=== PATIENT | female | born 1995 | race Caucasian/White ===

== ENCOUNTER 2017-07-26 16:45 | Emergency (ER) | payer BC ==
[2017-07-26 18:45] LABS: Hematocrit 40 % (35-47); Hemoglobin 13.5 g/dl (12.0-16.0); Mean Corpuscular HGB Conc 34 g/dl (31-36); Mean Corpuscular Hemoglobin 31 pg (27-31); Mean Corpuscular Volume 92 fL (80-97); Mean Platelet Volume 8 um3 (7.4-10.4); Red Blood Count 4.35 10^6/ul (4.0-5.4); Red Cell Distribution Width 13 % (10.5-15); White Blood Count 14.8 10^3/ul (3.5-10.8)
[2017-07-26 18:56] LABS: Urine Bilirubin Negative (Negative); Urine Glucose Negative (Negative); Urine Nitrite Negative (Negative)
[2017-07-26 18:57] LABS: ALT 10 U/L (7-52); AST 13 U/L (13-39); Albumin 4.5 g/dL (3.2-5.2); Alkaline Phosphatase 39 U/L (34-104); Anion Gap 9 mmol/L (2-11); BUN/Creatinine Ratio 13.6 (8-20); Blood Urea Nitrogen 12 mg/dL (6-24); C Reactive Protein 9.52 mg/L (< 5.00); CO2 Carbon Dioxide 22 mmol/L (22-32); Calcium 8.9 mg/dL (8.6-10.3); Chloride 102 mmol/L (101-111); EGFR African American 101.5 (>60); EGFR Non-African American 78.9 (>60); Globulin 2.9 g/dL (2-4); Glucose 103 mg/dL (70-100); Lipase 29 U/L (11.0-82.0); Potassium 3.9 mmol/L (3.5-5.0); Sodium 133 mmol/L (133-145); Total Protein 7.4 g/dL (6.4-8.9)
[2017-07-26] MEDS ORDERED: Morphine INJ* 4 MG/ML 1 ML CARPUJECT IV ONE (19:33)
[2017-07-26] MEDS ORDERED: Ondansetron INJ* 2 MG/ML VIAL IV ONE (19:33)
--- NOTE | 2017-07-26 20:09 | RAD ---
CLINICAL HISTORY: Right flank and abdominal pain. COMPARISON: None TECHNIQUE: Noncontrast CT examination of the abdomen and pelvis from the lung bases through the initial tuberosities. FINDINGS: VISUALIZED LUNG BASES: The visualized lung bases are grossly clear. There is no pleural effusion. ABDOMEN AND PELVIS: Evaluation of the solid organs and vasculature is limited without intravenous contrast. The liver, spleen, pancreas and adrenal glands are grossly normal in appearance. The gallbladder is normal. The kidneys are normal in appearance without focal mass, calcification or signs of hydronephrosis. Evaluation of the gastrointestinal tract is limited without oral contrast. The small and large bowel are not distended.The patient's normal appendix is identified in the right lower quadrant with a small amount of gas in the lumen measuring 5 mm in diameter (axial image 64 and sagittal image 49).. There is no gross retroperitoneal or mesenteric lymphadenopathy. There is a small amount of fluid in the cul-de-sac. The abdominal aorta and iliac arteries are normal in course and diameter. There are no sinister bone lesions. IMPRESSION: 1. No renal calculi or signs of hydronephrosis. 2. Small amount of fluid in the cul-de-sac is noted. Please correlate to stage of menstrual cycle.
--- NOTE | 2017-07-26 22:19 | RAD ---
INDICATION: Interval increase of 2 days of right lower quadrant pain. COMPARISON: Same day CT of the abdomen and pelvis dated July 26, 2017. TECHNIQUE: Real-time transabdominal and transvaginal ultrasound examination of the female pelvis including grayscale and Doppler color flow imaging. FINDINGS: Uterus: The uterus is normal in size and echogenicity measuring 5.7 x 2.3 x 4.4 cm. The endometrial stripe is smooth and uniform measuring 2 mm in thickness. At the right adnexa there is a partially vascular heterogeneous structure measuring 2.6 x 4.4 x 4.1 cm. Along the more lateral margin of this structure there is a tubular 1.9 cm portion with a hyperechogenic center measuring 5 mm. Along the left lateral aspect of the uterus there are dilated periuterine veins measuring 6 mm in diameter. Ovaries: The right and left ovary measure 3.4 x 2.1 x 2.4 cm and 3.1 x 1.3 x 3.0 cm, respectively. Normal arterial and venous waveforms are identified. Appearance is within normal limits for the patient's age. There is no free fluid in the cul-de-sac. IMPRESSION: 1. Along the right adnexa there is a tubular structure with an echogenic focus potentially representing a dilated and/or obstructed right fallopian tube. Differential includes tubo-ovarian abscess, right fallopian tube obstruction of another etiology or tubal ectopic . Please correlate to physical examination and relevant laboratory values including beta hCG. 2. Top normal left sided periuterine veins are incidentally noted. Imaging findings were discussed with Dr. Quiroz of the telephone at 2200 hours on July 26, 2017.
[2017-07-26] MEDS ORDERED: DOXYcycline CAP(*) 100 MG PO ONE (22:40)
[2017-07-26] MEDS ORDERED: diPHENhydraMINE IV* 25 MG in NS 0.9% 50 ML* 50 ML IVPB ONE (22:40)
[2017-07-26] MEDS ORDERED: metroNIDAZOLE TAB* 250 MG PO ONE (22:40)
[2017-07-26] MEDS ORDERED: cefTRIAXone(*) 1 GM in NS 0.9% 50 ML* 50 ML IVPB ONE (22:40)
[2017-07-26] MEDS ORDERED: traMADol TAB* 50 MG PO ONE (22:41)
[2017-07-27 00:51] VITALS: BP 116/73
--- NOTE | 2017-07-28 09:55 | PN ---
Progress Note - Progress Note Date of Service: 07/26/17 Note: Patient vaginal cultures positive for gardnerella. placed on flagyl at d/c. no further changes required at this time.
--- NOTE | 2017-07-28 10:18 | ED ---
Cass Salas Nilda, scribed for Dawit Quiroz MD on 07/26/17 at 1814 . Abdominal Pain/Female - HPI Summary HPI Summary: This patient is a 22 year old F BIBA to [facility] accompanied by parents with a chief complaint of abdominal pain that radiated to her back since yesterday. The patient rated the pain 10/10 in severity but is now a 7/10. Symptoms aggravated by nothing and alleviated by Toradol taken [facility] at [facility] (one hour ago). Patient reports diaphoresis, anxiety attack, and nausea. Patient denies urinary problems (discharge, hematuria, burning, frequency). Patients last BM was today, LNMP was 4 days ago, and she recently came off BCP due to possible allergy (2 days ago). FHx kidney stones. - History of Current Complaint Chief Complaint: EDAbdPain Stated Complaint: RT SIDE ABD PAIN Time Seen by Provider: 07/26/17 17:55 Hx Obtained From: Patient Hx Last Menstrual Period: two weeks ago Onset/Duration: Lasting Days Timing: Constant Severity Currently: Severe Pain Intensity: 7 Location: Diffuse Radiates: Yes Radiates to: Back Character: Sharp Allergies/Adverse Reactions: Allergies Allergy/AdvReac Type Severity Reaction Status Date / Time Amoxicillin [From Augmentin] Allergy Hives Verified 07/26/17 17:29 Cefaclor [From Ceclor] Allergy Hives Verified 07/26/17 17:29 Clavulanic Acid Allergy Hives Verified 07/26/17 17:29 [From Augmentin] Penicillins Allergy Hives Verified 07/26/17 17:29 Sulfa Drugs Allergy Hives Verified 07/26/17 17:29 Cover roll tape Allergy Rash Uncoded 07/26/17 17:29 environmental allergies Allergy See Comment Uncoded 07/26/17 17:29 PMH/Surg Hx/FS Hx/Imm Hx Endocrine/Hematology History: Denies: Hx Diabetes Respiratory History: Denies: Hx Asthma EENT History: Denies: Hx Deafness - Surgical History Surgery Procedure, Year, and Place: Left shoulder 2011 Infectious Disease History: Yes Infectious Disease History: Denies: Traveled Outside the [place] in Last 30 Days - Family History Known Family History: Positive: Other - kidney stones - Social History Alcohol Use: Occasionally Substance Use Type: Reports: None Smoking Status (MU): Never Smoked Tobacco Review of Systems Positive: Skin Diaphoresis. Negative: Fever, Chills Negative: Erythema Negative: Sore Throat Negative: Chest Pain Negative: Shortness Of Breath, Cough Positive: Abdominal Pain, Nausea. Negative: Vomiting, Diarrhea Negative: burning, dysuria, discharge, frequency, hematuria Positive: Other - back pain. Negative: Myalgia, Edema Negative: Rash Neurological: Other - negative dizziness Positive: Anxious All Other Systems Reviewed And Are Negative: Yes Physical Exam - Summary Physical Exam Summary: Constitutional: Well-developed, Well-nourished, Alert. (-) Distressed Skin: Warm, Dry HENT: Normocephalic; Atraumatic Eyes: Conjunctiva normal Neck: Musculoskeletal ROM normal neck. (-) JVD, (-) Stridor, (-) Tracheal deviation Cardio: Rhythm regular, rate normal, Heart sounds normal; Intact distal pulses; The pedal pulses are 2+ and symmetric. Radial pulses are 2+ and symmetric. (-) Murmur Pulmonary/Chest wall: Effort normal. (-) Respiratory distress, (-) Wheezes, (-) Rales Abd: Soft, (-) Tenderness, (-) Distension, (-) Guarding, (-) Rebound Musculoskeletal: (-) Edema Lymph: (-) Cervical adenopathy Neuro: Alert, Oriented x3 Psych: Mood and affect Normal Triage Information Reviewed: Yes Vital Signs On Initial Exam: Initial Vitals Temp Pulse Resp BP Pulse Ox 98.0 F 65 18 117/56 97 07/26/17 17:26 07/26/17 17:26 07/26/17 17:26 07/26/17 17:26 07/26/17 17:26 Vital Signs Reviewed: Yes - Denisse Coma Scale Coma Scale Total: 15 Diagnostics - Vital Signs Vital Signs Temp Pulse Resp BP Pulse Ox 07/26/17 17:31 69 18 98 07/26/17 17:26 98.0 F 65 18 117/56 97 - Laboratory Result Diagrams: 07/26/17 18:30 07/26/17 18:30 Lab Statement: Any lab studies that have been ordered have been reviewed, and results considered in the medical decision making process. - CT Abdomen/Pelvis CT Interpretation Completed By: Radiologist - No renal calculi or signs of nydronephrosis. Small amount of fluid in the cul-de-sac is noted. Please correlate to stage of menstrual cycle. ED physician reviewed report and agrees. - Additional Comments Diagnostic Additional Comments: US Transvaginal, per radiologist, reveals 1. Along the right adnexa there is a tubular structure with an echogenic focus potentially representing a dilated and/or obstructed right fallopian tube. Differential includes tubo-ovarian abscess, right fallopian tube obstruction of another etiology or tubal ectopic . Please correlate to physical examination and relevant laboratory values including beta hCG. 2. Top normal left sided periuterine veins are incidentally noted. Imaging findings were discussed with Dr. Quiroz of the telephone at 2200 hours on July 26, 2017. ED Physician reviewed report and agrees. Abdominal Pain Fem Course/Dx - Course Course Of Treatment: This patient is a 22 year old F BIBA to [facility] accompanied by parents with a chief complaint of abdominal pain that radiated to her back since yesterday. The patient rated the pain 10/10 in severity but is now a 7/ 10. Symptoms aggravated by nothing and alleviated by Toradol taken [facility] at [facility] (one hour ago). Patient reports diaphoresis, anxiety attack, and nausea. Patient denies urinary problems (discharge, hematuria, burning, frequency). Patients last BM was today, LNMP was 4 days ago, and she recently came off BCP due to possible allergy (2 days ago). FHx kidney stones. Abdomen/ Pelvis CT, per radiologist, reveals no renal calculi or signs of nydronephrosis. Small amount of fluid in the cul-de-sac is noted. Please correlate to stage of menstrual cycle. ED physician reviewed report and agrees. US Transvaginal, per radiologist, reveals: 1. Along the right adnexa there is a tubular structure with an echogenic focus potentially. representing a dilated and/or obstructed right fallopian tube. Differential includes. tubo- ovarian abscess, right fallopian tube obstruction of another etiology or tubal. ectopic . Please correlate to physical examination and relevant laboratory values. including beta hCG. 2. Top normal left sided periuterine veins are incidentally noted. Imaging findings were discussed with Dr. Quiroz of the telephone at 2200 hours on 2016. ED Physician reviewed report and agrees. [2250] Dr. Pereira (PHYSICIAN INTENSIVIST) reviewed ultrasound. Negative and very low suspicion for STD. He wants to see her in his clinic tomorrow morning. He recommends that patient be treated for pelvic inflammatory disesae. Patient is agreeable with this plan. Patient must receive a dose of Rocephin despite allergy (rash) to similar medications. Patient will be given Benadryl beforehand. If she begins to have a reaction, the dose will be stopped immediately. Patient agrees with this plan. Patient is diagnosed with right adnexal mass. Patient is being signed out to Dr. Doe, pending medication ( Rochephin) administration. - Diagnoses Provider Diagnoses: Adnexal mass - Provider Notifications Discussed Care Of Patient With: Deonte Pereira Time Discussed With Above Provider: 22:50 Instructed by Provider To: Other - reviewed ultrasound. Negative and very low suspicion for STD. He wants to see her in his clinic tomorrow morning. He recommends that patient be treated for pelvic inflammatory disease. Discharge - Discharge Plan Condition: Stable Disposition: OTHER Discharge Disposition Comment: Patient signed out to Dr. Doe, awaiting medication aministration. Prescriptions: DOXYcycline CAP(*) [DOXYcycline 100MG CAP(*)] 100 mg PO BID #20 cap Metronidazole [Flagyl 500 MG TAB] 500 mg PO BID #20 tab Naproxen TAB* [Naprosyn 250 mg TAB*] 500 mg PO Q8H PRN #30 tab PRN Reason: Pain - Moderate To Severe traMADol TAB* [Ultram*] 50 mg PO Q6HR PRN #12 tab MDD 4 PRN Reason: Pain - Moderate To Severe Referrals: Chip Ryan [Primary Care Provider] - The documentation as recorded by the Cass nicolas Nilda accurately reflects the service I personally performed and the decisions made by me, Dawit Quiroz MD.
== END 2017-07-27 00:48 ==
LOC: ED 16:45
DX: R19.09 Other intra-abdominal and pelvic swelling, mass and lump (principal); R10.9 Unspecified abdominal pain; F41.9 Anxiety disorder, unspecified; R11.0 Nausea
CPT/HCPCS: 36415; 74176; 76830; 80053; 81003; 83605; 83690; 84702; 85025; 86140; 87480; 87491; 87510; 87591; 87661; 96374; 96375; 99285; A9270-GY; J0696; J1200; J2270; J2405

== ENCOUNTER 2018-08-19 14:56 | Emergency (ER) | payer BC ==
--- OUTSIDE RECORDS SUMMARY | 2018-08-19 15:11 | XMS REPORT ---
:1995 External Reference #:[id number] Author Organization [facility] Address [address] [address] Phone [phone] Care Team Providers Name Role Phone Chip Ryan PA Care Team Information Show Girl Unavailable Payers Type Date Identification Numbers Payment Provider Subscriber Commercial Policy Number: [id number] [facility] Commercial Rupali Yates PayID: [id number] [address] [address] [place] [address] Problems Date Description Provider Status Onset: 12/22/2016 Peptic reflux disease Madison Weiner PA Active Family History Date Family Member(s) Problem(s) Comments Father Hypertension Father Diabetes, Adult Mother Good Health First Brother Good Health Paternal Grandfather due to Cancer, Lung () Paternal Grandfather due to Cancer, Brain () Paternal Grandmother Good Health Maternal Grandfather Good Health Maternal Grandmother Good Health Social History Type Date Description Comments Marital Status Single 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 consumes 1-2 beers per week Smoking Patient has never smoked Recreational Drug Use Denies Drug Use Daily Caffeine Consumes on average 1 cup of coffee per day Daily Caffeine Consumes on average 3 sodas per day Enjoy Exercising Enjoys Exercising Sun Exposure moderate amount of sun exposure Sun Exposure Uses sunscreen Seat Belt/Car Seat always uses seat belt Guns in Home No Recent Travel There has not been recent travel abroad Allergies, Adverse Reactions, Alerts Date Description Reaction Status Severity Comments 12/22/2016 Penicillin Hives active 12/22/2016 Amoxicillin Hives active 12/22/2016 Sulfa Drugs Hives active 12/22/2016 Ceclor Hives active Medications Medication Date Status Form Strength Qnty SIG Indications Ordering Provider Omeprazole Active Capsules DR 20mg 90caps 1 by Priya Freeman Zuly every day MD Yomi Ranitidine HCL Active Capsules 150mg 60caps 1 by Priya Freeman mouth a Zuly day MD Yomi Hydroxyzine Active Tablets 25mg 120tab take 1 F41.1 TOBIAS Freeman s tablet by Zuly Celaya MD every 6 hours as needed for anxiety Medications Administered in Office Medication Date Status Form Strength Qnty SIG Indications Ordering Provider PPD Administered Injection Nurses 8 Schedule Beronica Vital Signs Date Vital Result Comment 08/13/2018 Body Temperature 99.2 F Weight 176.25 lb Heart Rate 89 /min BP Systolic 121 mmHg BP Diastolic 76 mmHg Height 69 inches 5'9" BMI (Body Mass Index) 26.0 kg/m2 01/18/2018 Weight 177.50 lb Heart Rate 70 /min BP Systolic 100 mmHg BP Diastolic 65 mmHg Height 69 inches 5'9" BMI (Body Mass Index) 26.2 kg/m2 08/02/2017 Height 69 inches 5'9" 07/26/2017 Heart Rate 81 /min BP Systolic 110 mmHg BP Diastolic 74 mmHg 12/22/2016 Weight 181.00 lb Heart Rate 72 /min BP Systolic 115 mmHg BP Diastolic 57 mmHg Height 69 inches 5'9" BMI (Body Mass Index) 26.7 kg/m2 Results Test Date Test Result H/L Range Note Laboratory test finding 08/13/2018 1 Rapid Flu Test (In House) NEG 1 Strep Screen (In-House) NEG Negative Comprehensive Metabolic (CMP) 12/22/2016 Sodium 140 mmol/L 134-142 Potassium 5.1 mmol/L 3.5-5.2 Chloride 105 mmol/L 97-109 Carbon Dioxide 28 mmol/L 24-34 Glucose 69 mg/dL Low 70-105 BUN 11 mg/dL 6-26 Creatinine 0.9 mg/dL 0.5-1.4 Calcium 9.8 mg/dL 8.5-10.2 Total Protein 7.3 g/dL 6.0-8.0 Albumin 4.8 g/dL 3.6-4.9 Globulin 2.5 g/dL 2.0-3.5 A/G Ratio 1.9 Ratio 1.0-2.2 Total Bilirubin 0.6 mg/dL 0.1-1.3 Alkaline Phosphatase 43 U/L 24-140 Alt 9 U/L 3-42 Ast 13 U/L 8-42 Anion Gap 12 mmol/L 6-14 Amanda Egfr >60 >60 1 Non Amanda Egfr >60 >60 2 CBC With Auto Diff 12/22/2016 WBC 5.4 K/uL 4.1-11.0 RBC 4.67 M/uL 4.00-5.40 Hemoglobin 14.6 gm/dL 12.0-16.0 Hematocrit 42.8 % 36.0-47.0 MCV 91.6 fL 80.0-97.0 MCH 31.3 pg 27.0-32.0 MCHC 34.1 g/dL 32.0-36.0 RDW 13.2 % 11.5-14.5 PLT Count 320 K/ul 140-400 Neutrophil 52.7 % 35.0-75.0 Lymphocyte 37.5 % 16.0-52.0 Monocyte 7.7 % 2.0-10.0 Eosinophil 1.1 % 0.0-5.0 Basophil 1.0 % 0.0-4.0 Abs Neutrophils 2.9 K/uL 2.1-8.0 Abs Lymphocytes 2.0 K/uL 0.8-5.5 Abs Monocytes 0.4 K/uL 0.1-1.0 Abs Eosinophils 0.1 K/uL 0.0-0.5 Abs Basophils 0.1 K/uL 0.0-0.3 Lipid 12/22/2016 Cholesterol 162 mg/dL 50-199 Triglycerides 164 mg/dL 30-200 HDL 56 mg/dL 35-85 3 Chol/ HDL Ratio 2.9 ratio Low 3.7-5.6 VLDL 33 mg/dL High 2-29 LDL (Calc) 73 mg/dL 20-99 4 Laboratory test finding 12/22/2016 TSH 1.31 uIU/mL 0.35-4.94 1 Concerning GFR Guidelines for Americans: Normal function or mild renal disease, if clinically at risk: >/=60 mL/min Moderately decreased: 30-59 Severely decreased: 15-29 Renal failure: <15 2 Concerning GFR Guidelines: Normal function or mild renal disease, if clinically at risk: >/=60 mL/min Moderately decreased: 30-59 Severely decreased: 15-29 Renal failure: <15 Glomerular Filtration Rate (GFR) is estimated based on the MDRD equation, which assumes a steady state for creatinine as recommended by the National Kidney Disease Education Program in conjunction with the National Institutes of Health and the National Kidney Foundation. Clinical conditions in which it may be necessary to measure GFR by using clearance methods include extremes of age and body size, severe malnutrition or obesity, diseases of skeletal muscle, paraplegia or quadriplegia, vegetarian diet, rapidly changing kidney function, and calculation of the dose of potentially toxic drugs that are excreted by the kidneys. 3 Per NCEP ATP III Guidelines: Results lower than 40 mg/dL are suggestive of increased risk for coronary artery disease. Results > or=to 60 mg/dL are considered a negative risk factor. 4 Per NCEP ATP III Guidelines: Normal Population <130 Patients with medical conditions: CHD/DM Optimal: <100 Borderline high: 130-159 High: 160-189 Very high: >189 Procedures Date CPT Code Description Status 07/26/2017 13689 Admin Of Inj (Therapeutic Phrophylactic Or Diagnostic Completed Subq Inj 12/22/2016 85884 Electrocardiogram Complete Completed Encounters Type Date Location Provider CPT E/M Dx Office Visit 01/18/2018 3:00p [place] [address] Z00.00 F41.1 Z68.26 Office Visit 07/26/2017 3:20[place] [address] R10.823 Office Visit 12/22/2016 9:20[place] [address] Z00.00 K21.9 F41.1 R07.9 R00.2 Plan of Care 08/13/2018 - Chip Ryan PAJ06.9 Acute upper respiratory infection, unspecifiedComments:flu and strep neg. viral so treat with OTC prn. if worsening thru week, then call and will Rx Abx.J02.9 Acute pharyngitis, unspecified
[2018-08-19 15:20] VITALS: BP 102/71
--- NOTE | 2018-08-19 15:44 | UC ---
Respiratory Complaint HPI - HPI Summary HPI Summary: Started with HARPRE and body aches 10 days ago; about 1 week ago nasal congestion and cough started. Lots of uncontrolled coughing fits, some wheezing. Saw PCP this week and had negative flu & strep swabs. No recent fevers, but sleeping very poorly due to coughing and waking up with sweats. - History of Current Complaint Chief Complaint: UCRespiratory Stated Complaint: COUGH Time Seen by Provider: 08/19/18 15:14 Hx Obtained From: Patient Hx Last Menstrual Period: 08/09/18 ?: No Onset/Duration: Gradual Onset, Lasting Days Timing: Constant Severity Initially: Mild Severity Currently: Moderate Pain Intensity: 0 Character: Cough: Nonproductive, Cough: Productive Aggravating Factors: Exertion, Deep Breaths, Recumbent Position Alleviating Factors: Upright Position Associated Signs And Symptoms: Positive: URI, Nasal Congestion. Negative: Dyspnea, Fever, Chills, Hemoptysis, Dizziness - Allergies/Home Medications Allergies/Adverse Reactions: Allergies Allergy/AdvReac Type Severity Reaction Status Date / Time amoxicillin [From Augmentin] Allergy Hives Verified 08/19/18 15:16 cefaclor [From Ceclor] Allergy Hives Verified 08/19/18 15:16 clavulanic acid Allergy Hives Verified 08/19/18 15:16 [From Augmentin] Penicillins Allergy Hives Verified 08/19/18 15:16 Sulfa (Sulfonamide Allergy Hives Verified 08/19/18 15:16 Antibiotics) Cover roll tape Allergy Rash Uncoded 08/19/18 15:16 environmental allergies Allergy See Comment Uncoded 08/19/18 15:16 PMH/Surg Hx/FS Hx/Imm Hx Previously Healthy: Yes - Surgical History Surgical History: None Surgery Procedure, Year, and Place: Left shoulder 2011 - Family History Known Family History: Positive: None, Other - kidney stones - Social History Occupation: Employed Full-time Alcohol Use: Occasionally Substance Use Type: None Smoking Status (MU): Never Smoked Tobacco Review of Systems Constitutional: Fatigue Skin: Negative Eyes: Negative ENT: Sore Throat, Nasal Discharge Respiratory: Cough Cardiovascular: Negative Gastrointestinal: Negative Genitourinary: Negative Motor: Negative Neurovascular: Negative Musculoskeletal: Negative Neurological: Negative Psychological: Negative Is Patient Immunocompromised?: No All Other Systems Reviewed And Are Negative: Yes Physical Exam Triage Information Reviewed: Yes Appearance: Well-Nourished, Ill-Appearing - acute illness Vital Signs: Initial Vital Signs Temp 97 F 08/19/18 15:16 Pulse 64 08/19/18 15:16 Resp 16 08/19/18 15:16 BP 102/71 08/19/18 15:16 Pulse Ox 100 08/19/18 15:16 Vital Signs Reviewed: Yes Eye Exam: Normal Eyes: Positive: Conjunctiva Clear ENT: Positive: Pharynx normal, Nasal congestion, TM dull - L TM dull and discolored, no bulging or drainage Neck exam: Normal Neck: Positive: Supple, Nontender, No Lymphadenopathy Respiratory Exam: Other - Occ cough Respiratory: Positive: Chest non-tender, Lungs clear, Normal breath sounds, No respiratory distress, No accessory muscle use Cardiovascular Exam: Normal Cardiovascular: Positive: RRR, No Murmur Musculoskeletal Exam: Normal Musculoskeletal: Positive: Strength Intact, ROM Intact Neurological Exam: Normal Neurological: Positive: Alert Psychological Exam: Normal Skin Exam: Normal UC Diagnostic Evaluation - Laboratory O2 Sat by Pulse Oximetry: 100 Respiratory Course/Dx - Differential Dx/Diagnosis Provider Diagnoses: Acute bronchitis Discharge - Sign-Out/Discharge Documenting (check all that apply): Patient Departure All imaging exams completed and their final reports reviewed: No Studies - Discharge Plan Condition: Stable Disposition: HOME Prescriptions: Albuterol HFA INHALER* [Ventolin HFA Inhaler*] 1 - 2 puff INH Q4H PRN #1 mdi PRN Reason: wheeze, cough Benzonatate CAP* [Tessalon CAP*] 100 mg PO TID PRN #30 cap PRN Reason: Cough Hydrocodone/Chlorphen P-Stirex [Tussionex Pennkinetic Susp] 2.5 - 5 ml PO BEDTIME PRN #1 bottle MDD 5mL PRN Reason: cough predniSONE TAB* [Deltasone TAB*] 50 mg PO DAILY #4 tab Patient Education Materials: Acute Bronchitis (ED) Referrals: Chip Ryan [Primary Care Provider] - 4 Days Additional Instructions: There is no "cure" for the viral infection -- it must run its course. If there is a complication, such as bacterial infection in the nose, sinuses, middle ear, or bronchial tubes, antibiotics may be required. The antibiotics won't affect the virus. Drink plenty of fluids. A humidifier may help. An expectorant medication or decongestant may make you more comfortable. Use acetaminophen or ibuprofen for fever or aches. Please call or return if you develop difficulty breathing, fever over 100F , sudden worsening, or failure to improve at all for 4 or more days. - Billing Disposition and Condition Condition: STABLE Disposition: Home
== END 2018-08-19 15:47 | disposition home or self-care (01) ==
LOC: UCCORT 14:56
DX: J20.9 Acute bronchitis, unspecified (principal); Z88.0 Allergy status to penicillin; Z88.1 Allergy status to other antibiotic agents; Z88.2 Allergy status to sulfonamides; Z91.048 Other nonmedicinal substance allergy status
CPT/HCPCS: 99212; G0463